=== PATIENT | female | born 1955 | race Hispanic/Latino ===

== ENCOUNTER 2022-02-10 18:36 | Inpatient (IN) | payer MEDICARE ==
[2022-02-10] MEDS ORDERED: Senokot S 8.6-50 MG TAB PO PRN (22:22)
[2022-02-10] MEDS ORDERED: Ondansetron ODT 4 MG TAB PO PRN (22:22)
[2022-02-10] MEDS ORDERED: Bisacodyl 10 MG SUPP PR PRN (22:22)
[2022-02-10] MEDS ORDERED: Bisacodyl 5 MG TAB PO PRN (22:22)
[2022-02-10] MEDS ORDERED: hydrALAZINE 20 MG/ML VIAL SLOW IVP PRN (22:22)
[2022-02-10] MEDS ORDERED: Melatonin 3 MG TAB PO PRN (22:33)
[2022-02-10 23:07] LABS: Hemoglobin A1c 10.2 % (4.0-6.0)
[2022-02-10] MEDS ORDERED: Melatonin 3 MG TAB PO SCH (23:15)
[2022-02-11] MEDS: Nicotine 14 MG PATCH TD SCH (00:15)
[2022-02-11] MEDS ORDERED: Dextrose 50% Abboject 50 ML SYRINGE SLOW IVP PRN (00:17)
[2022-02-11] MEDS ORDERED: HumaLOG 300 UNITS/3 ML VIAL SC PRN (00:17)
[2022-02-11] MEDS ORDERED: Dextrose 5% in Water 1,000 ML IV PRN (00:17)
[2022-02-11 01:00] VITALS: BMI 28.0
[2022-02-11 02:35] LABS: SARS-CoV-2 NAA Rapid Test Not Detected (NotDetected)
[2022-02-11] MEDS: Acetaminophen 325 MG TAB PO PRN ×2 (03:54→09:45)
[2022-02-11 05:05] LABS: #Eosinphils 0.2 thou/uL (0.0-0.7); #Lymphocytes 3.4 thou/uL (1.20-3.40); #Monocytes 0.6 thou/uL (0.11-0.59); #Neutrophils 4.6 thou/uL (1.40-6.50); %Basophils 0.5 % (0.0-1.0); %Lymphocytes 38.6 % (21.0-51.0); %Monocytes 6.8 % (0.0-10.0); %Neutrophils 52.1 % (42.0-75.0); Hemoglobin 13.4 g/dL (12.0-16.0); Mean Corpuscular HGB CONC 33.8 g/dL (32.0-36.0); Mean Corpuscular Hemoglobin 31.5 pg (27.0-31.0); Mean Corpuscular Volume 93.2 fL (78.0-98.0); Mean Platelet Volume 7.6 fL (7.4-10.4); Platelet Count 274 thou/uL (130-400); RBC Distribution Width 11.2 % (11.5-14.5); Red Blood Cell (RBC) Count 4.25 mill/uL (4.20-5.40); White Blood Cell (WBC) Count 8.7 thou/uL (4.8-10.8)
[2022-02-11 05:25] LABS: ALT (SGPT) 12 U/L (8-55); AST (SGOT) 15 U/L (5-34); Albumin 3.8 g/dL (3.4-4.8); Alkaline Phosphatase 97 U/L (40-110); Anion Gap 13 mmol/L (10-20); BUN (Urea Nitrogen) 9 mg/dL (9.8-20.1); Bilirubin, Total 0.4 mg/dL (0.2-1.2); Calc. Creatinine Clearance 82 mL/min (70-130); Calcium 9.3 mg/dL (7.8-10.44); Carbon Dioxide 25 mmol/L (23-31); Cardiac Risk 6.9 (Less than 4.5); Chloride 100 mmol/L (98-107); Cholesterol 241 mg/dl (< 200 Desired); Estimated GFR 88; Globulin 2.8 g/dL (2.4-3.5); Glucose 296 mg/dL (80-115); HDL Cholesterol 35 mg/dL (>60 Neg Risk); LDL Cholesterol, Calculated 134 mg/dL; Potassium 3.7 mmol/L (3.5-5.1); Protein, Total 6.6 g/dL (5.8-8.1); Sodium 134 mmol/L (136-145); Triglycerides 361 mg/dL (Less than 150)
[2022-02-11 05:36] LABS: Amphetamine Not Detected (NotDetected); Barbiturates Screen Not Detected (NotDetected); Benzodiazepine Screen Not Detected (NotDetected); Cocaine Metabolite Screen Not Detected (NotDetected); Methadone Not Detected (NotDetected); Methamphetamine Not Detected (NotDetected); Opiate Screen Not Detected (NotDetected); Oxycodone Screen Not Detected (NotDetected); Phencyclidine (PCP) Not Detected (NotDetected); THC/Cannabinoid Screen Not Detected (NotDetected); Tricyclic Screen Not Detected (NotDetected)
[2022-02-11] MEDS: HumaLOG 300 UNITS/3 ML VIAL SC PRN ×3 (06:06→17:40)
[2022-02-11] MEDS: Aspirin 81 mg Enteric Coated Tablet PO SCH (09:37)
[2022-02-11] MEDS ORDERED: HYDROcodone/Acetaminophen 5/325 mg Tablet PO SCH (13:15)
[2022-02-11] MEDS: Amlodipine 5 MG TAB PO SCH (17:16)
[2022-02-11] MEDS: Ondansetron PF 4 MG/2 ML Vial IVP PRN (21:15)
[2022-02-11] MEDS: Atorvastatin Calcium 40 MG TAB PO SCH (21:15)
[2022-02-12] MEDS: Nicotine 14 MG PATCH TD SCH ×2 (00:01→22:26)
[2022-02-12] MEDS: Aspirin 81 mg Enteric Coated Tablet PO SCH (09:48)
[2022-02-12] MEDS: HumaLOG 300 UNITS/3 ML VIAL SC PRN ×2 (12:39→18:08)
[2022-02-12] MEDS: Amlodipine 5 MG TAB PO SCH ×2 (12:40→21:52)
[2022-02-12] MEDS: Ondansetron PF 4 MG/2 ML Vial IVP PRN (18:08)
[2022-02-12] MEDS: metFORMIN 500 MG TAB PO SCH (18:08)
[2022-02-12] MEDS ORDERED: Insulin Glargine 30 UNITS/0.3 ML VIAL SC SCH (21:00)
[2022-02-12] MEDS: Atorvastatin Calcium 40 MG TAB PO SCH (21:52)
[2022-02-13 05:53] LABS: Anion Gap 14 mmol/L (10-20); BUN (Urea Nitrogen) 10 mg/dL (9.8-20.1); Calc. Creatinine Clearance 78 mL/min (70-130); Calcium 9.4 mg/dL (7.8-10.44); Carbon Dioxide 26 mmol/L (23-31); Chloride 102 mmol/L (98-107); Estimated GFR 83; Glucose 215 mg/dL (80-115); Sodium 138 mmol/L (136-145)
[2022-02-13] MEDS: HumaLOG 300 UNITS/3 ML VIAL SC PRN ×3 (06:44→17:15)
[2022-02-13] MEDS: metFORMIN 500 MG TAB PO SCH ×2 (09:58→17:14)
[2022-02-13] MEDS: Amlodipine 5 MG TAB PO SCH ×2 (09:58→19:56)
[2022-02-13] MEDS: Aspirin 81 mg Enteric Coated Tablet PO SCH (09:58)
[2022-02-13] MEDS: HYDROcodone/Acetaminophen 5/325 mg Tablet PO PRN ×2 (10:05→19:56)
[2022-02-13] MEDS ORDERED: Polyethylene Glycol 3350 17 GM Packet PO SCH (10:30)
[2022-02-13] MEDS: Atorvastatin Calcium 40 MG TAB PO SCH (19:56)
[2022-02-13] MEDS: Insulin Glargine 30 UNITS/0.3 ML VIAL SC SCH (21:06)
[2022-02-13] MEDS: Nicotine 14 MG PATCH TD SCH (21:10)
[2022-02-14] MEDS: HumaLOG 300 UNITS/3 ML VIAL SC PRN ×2 (05:37→11:03)
[2022-02-14] MEDS: Amlodipine 5 MG TAB PO SCH ×3 (08:54→20:57)
[2022-02-14] MEDS: Aspirin 81 mg Enteric Coated Tablet PO SCH (08:54)
[2022-02-14] MEDS: Polyethylene Glycol 3350 17 GM Packet PO SCH (08:54)
[2022-02-14] MEDS: metFORMIN 500 MG TAB PO SCH ×2 (08:55→17:21)
[2022-02-14] MEDS: Lisinopril 10 MG TAB PO SCH (08:55)
[2022-02-14] MEDS: Acetaminophen 325 MG TAB PO PRN (12:34)
[2022-02-14] MEDS: diphenhydrAMINE 50 MG/ML VIAL IVP SCH ×2 (14:54→20:54)
[2022-02-14] MEDS: Prochlorperazine 10 MG/2 ML VIAL IVP SCH ×2 (14:55→20:55)
[2022-02-14] MEDS: Atorvastatin Calcium 40 MG TAB PO SCH (20:55)
[2022-02-14] MEDS: Insulin Glargine 30 UNITS/0.3 ML VIAL SC SCH (20:55)
[2022-02-14] MEDS: Nicotine 14 MG PATCH TD SCH ×2 (22:36→22:37)
[2022-02-15] MEDS: Prochlorperazine 10 MG/2 ML VIAL IVP SCH ×2 (02:26→09:47)
[2022-02-15] MEDS: diphenhydrAMINE 50 MG/ML VIAL IVP SCH ×2 (02:26→09:47)
[2022-02-15 06:38] LABS: Anion Gap 14 mmol/L (10-20); BUN (Urea Nitrogen) 16 mg/dL (9.8-20.1); Calc. Creatinine Clearance 78 mL/min (70-130); Calcium 9.1 mg/dL (7.8-10.44); Carbon Dioxide 23 mmol/L (23-31); Chloride 105 mmol/L (98-107); Estimated GFR 83; Glucose 142 mg/dL (80-115); Potassium 3.7 mmol/L (3.5-5.1); Sodium 138 mmol/L (136-145)
[2022-02-15] MEDS: Lisinopril 10 MG TAB PO SCH (09:27)
[2022-02-15] MEDS: Aspirin 81 mg Enteric Coated Tablet PO SCH (09:27)
[2022-02-15] MEDS: Amlodipine 5 MG TAB PO SCH (09:28)
[2022-02-15] MEDS: metFORMIN 500 MG TAB PO SCH (09:28)
[2022-02-15] MEDS: Polyethylene Glycol 3350 17 GM Packet PO SCH (09:30)
[2022-02-15] MEDS ORDERED: Prochlorperazine 10 MG/2 ML VIAL IVP SCH (09:30)
[2022-02-15] MEDS: HumaLOG 300 UNITS/3 ML VIAL SC PRN (11:40)
[2022-02-15 16:16] VITALS: BP 131/71; TEMP 98.3
== END 2022-02-15 17:45 | disposition home or self-care (01) | DRG 103 ==
LOC: NEURO 20:56 → OBSVTOIN 02-12 14:17
PROVIDERS: ADMIT Family Medicine; ATTEND Family Medicine
DX: G43.809 Other migraine, not intractable, without status migrainosus (principal); I16.1 Hypertensive emergency; Z20.822 Contact with and (suspected) exposure to COVID-19; I10 Essential (primary) hypertension; F17.210 Nicotine dependence, cigarettes, uncomplicated; I67.1 Cerebral aneurysm, nonruptured; G47.00 Insomnia, unspecified; E11.65 Type 2 diabetes mellitus with hyperglycemia; R42 Dizziness and giddiness; H53.2 Diplopia; Z88.5 Allergy status to narcotic agent; Z83.3 Family history of diabetes mellitus; Z71.6 Tobacco abuse counseling
CPT/HCPCS: 36415; 36416; 70450; 70551; 80048; 80053; 80061; 80306; 83036; 85025; 93306; 96372; G0378; J0780; J1200; J1815; J2405; Q0162; U0002

== ENCOUNTER 2022-09-16 13:07 | Outpatient (CLI) | payer MEDICARE ==
[2022-09-16] MEDS ORDERED: Iopamidol 370 76% 100 ML VIAL ONE (15:02)
== END 2022-09-16 13:08 | disposition home or self-care (01) ==
LOC: BICCT 13:07
PROVIDERS: ATTEND Neurological Surgery
DX: I67.1 Cerebral aneurysm, nonruptured (principal); I72.8 Aneurysm of other specified arteries
CPT/HCPCS: 70496; Q9967